=== PATIENT | female | born 1980 | race Caucasian/White ===

== ENCOUNTER 2024-11-28 16:49 | Outpatient (CLI) | payer BC, SELFPAY ==
--- OUTSIDE RECORDS SUMMARY | 2023-08-21 09:40 | XMS_ITS ---
Author Organization [facility] Address [address] [place] [address] Care Team Providers Care Residential Substance Abuse Counselor Name Role Phone LUI LEIGH [phone] REASON FOR VISIT annual/bc refill Encounters Encounter Location Date Provider Diagnosis [facility] [address] [place] [address] 08/21/2023 LUI LEIGH Plan Of Treatment No Information Progress Notes * YOU Mena CDOB:[birth year] (44 yo F)Acc No.[id number]:08/21/2023 Progress Notes Patient: Mena SHARP Provider: ZOEY Begum :1980 A ge:43 Y S ex:Female Date:08/21/2023 Address:[address] [place], [place] [id number] Subjective: * Chief Complaints: * 1 . Annual/bc refill. * Medical History: Objective: * Vitals: Assessment: Plan: * Treatment: * Billing Information: * Visit Code: * Procedure Codes: * Electronic signature of ZOEY DAVIDSON on 11/28/2024 at 03:54 PM CDT Sign off status: Pending * Provider: ZOEY Begum Date: 08/21/2023 Generated for Francois pizarro/Kosta/eTransmitting on: 0 11/28/2024 03:54 PM CDT
--- OUTSIDE RECORDS SUMMARY | 2023-12-04 10:30 | XMS_ITS ---
Author Organization [facility] Address [address] [place] [address] Care Team Providers Care Station Inspector Name Role Phone NATALIYA Eric DO Unavailable [phone] REASON FOR VISIT medication change Encounters Encounter Location Date Provider Diagnosis [facility] [address] [place] [address] 12/04/2023 NATALIYA Eric Plan Of Treatment No Information Progress Notes * YOU Mena CDOB:[birth year] (44 yo F)Acc No.[id number]:12/04/2023 Patient: Khushi SHARPace Srinivasa Provider: Srinivasa NAVARRO DO :1980 A ge:43 Y S ex:Female Date:12/04/2023 Address:[address] [place], [place] [id number] Subjective: * Chief Complaints: * 1 . Medication change. * Medical History: Objective: * Vitals: Assessment: Plan: * Treatment: * Billing Information: * Visit Code: * Procedure Codes: * Electronic signature of MICHAEL Eric DO, DO on 11/28/2024 at 03:54 PM CDT Sign off status: Pending * Provider: Srinivasa NAVARRO DO Date: 12/04/2023 Generated for Francois pizarro/Kosta/eTransmitting on: 11/28/2024 03:54 PM CDT
--- OUTSIDE RECORDS SUMMARY | 2024-11-28 16:54 | XMS_ITS | Patient Health Record ---
Author Organization [facility] Address [address] [place] [address] Care Team Providers Care School Operations Manager Name Role Phone NATALIYA Eric DO Unavailable [phone] Allergies No Known Allergies Reason For Referral No Information Medications Medication SIG (Take, Route, Frequency, Duration) Notes Start Date End Date Status Vienva 0.1-20 MG-MCG TAKE ONE TABLET BY MOUTH ONE TIME DAILY for 84 Active Estrace 0.1 MG/GM 1 gm Vaginal twice w eekly for 30 days 06/07/2022 Not-Taking Adderall XR 15 MG 1 capsule in the mor adrian Orally Once a day Active Immunizations Vaccine Route Administration Date Status Comme nts .Tdap SC Subcutaneous 08/05/2019 Administered Social History Tobacco Use: Social History Observation Description Date Details (start date - stop date) Never Smoker NA - NA Household Question Answer Notes Marital status: Tobacco Use/Smoking Question Answer Notes Tobacco use: nonsmoker Problems Problem Type SNOMED Code ICD Code Onset Dates Problem Status W/U Status Risk Notes Problem 72656822 Urge incontinenc e (N39.41) Active confirmed Encounters Encounter Location Date Provider Diagnosis [facility] [address] [place] [address] 12/03/2023 NATALIYA Eric Plan Of Treatment No Information Insurance Providers Payer Name Payer Address Payer Phone Subscriber Number Group Number Insured Name Patient Relationship to Insured Coverage Start Date Coverage End Date [facility] [address] [place] [phone] [id number] Mena Jamison Self - patient is the insured [facility] [address] [place] [phone] [id number] Mena Jamison Self - patient is the insured Medical (General) History Medical History History ICD Code ADD (attention deficit disorder) F98.8 Surgical History Surgery Date(Month/Year) section; 2019-08-05 wisdom teeth; 2019-08-05
--- NOTE | 2024-11-28 17:01 | CT_ITS ---
PROCEDURE INFORMATION: Exam: CT Abdomen And Pelvis Without Contrast Exam date and time: 11/28/2024 5:02 PM Age: 44 years old Clinical indication: Abdominal pain; Localized; Right lower quadrant (rlq); Additional info: Rlq pain , R/O appendicitis TECHNIQUE: Imaging protocol: Computed tomography of the abdomen and pelvis without contrast. Radiation optimization: All CT scans at this facility use at least one of these dose optimization techniques: automated exposure control; mA and/or kV adjustment per patient size (includes targeted exams where dose is matched to clinical indication); or iterative reconstruction. COMPARISON: No relevant prior studies available. FINDINGS: Liver: 11 mm low-attenuation mass within the lateral segment of the left lobe of the liver with Hounsfield unit measurements of less than 20 consistent with a small cyst. Similar 3 mm low-attenuation nodule anterior left lobe of the liver. Third approximate 10 mm cyst lower right lobe of the liver. No follow-up required. Gallbladder and biliary ducts: Contracted or absent gallbladder. No calcified gallstones appreciated. Pancreas: Somewhat limited evaluation of the pancreas due to adjacent unopacified bowel. No obvious abnormality appreciated. Spleen: Normal. No splenomegaly. Adrenal glands: Normal. No mass. Kidneys and ureters: Small retained stone lower pole left kidney. 8 mm low-attenuation mass upper pole medial right kidney with Hounsfield unit measurements of less than 20 most consistent with a small cyst. No follow-up required. Stomach and bowel: Limited evaluation of the individual bowel loops in the mesentery due to the lack of mesenteric and retroperitoneal fat. Appendix: What appears to be a retrocecal appendix in the right lower quadrant measures 9.5 mm and is fluid filled. There is mild wall thickening. There is a small amount of free fluid within the lower pelvis. Intraperitoneal space: Unremarkable. No free air. No significant fluid collection. Vasculature: Unremarkable. No abdominal aortic aneurysm. Lymph nodes: Unremarkable. No enlarged lymph nodes. Urinary bladder: Unremarkable as visualized. Reproductive: There is a tampon within the vaginal canal. Bones/joints: 10 mm bone island right femoral head. Soft tissues: Small fat containing umbilical hernia. IMPRESSION: 1. Distended fluid-filled retrocecal appendix within the right lower quadrant with mild wall thickening and a small amount of free pelvic fluid. The appearance is worrisome for developing appendicitis. Clinical correlation recommended. A CT abdomen and pelvis with intravenous contrast could be performed if clinical signs and symptoms are equivocal. 2. Contracted or absent gallbladder. 3. Small retained left renal stone. 4. Other findings as above. Somewhat limited evaluation of the abdomen and pelvis due to the lack of mesenteric and retroperitoneal fat. COMMENTS: Consistent with the [employer]'s Incidental Findings Committee white paper (J Am Jes Radiol 2018): Any incidental renal lesion less than 1 cm or classified as too small to characterize, or any incidental cystic renal lesion characterized as simple-appearing, is likely benign. No follow-up imaging is recommended for these lesions per consensus recommendations based on imaging criteria. COMMENT: THIS REPORT CONTAINS FINDINGS THAT MAY BE CRITICAL TO PATIENT CARE. The exam findings were verbally communicated by me to Dr. Farfan via telephone conference at 6:31 PM EDT on 11/28/2024. The findings were acknowledged and understood.
== END 2024-11-28 23:59 | disposition home or self-care (01) ==
LOC: RAD 16:53
PROVIDERS: PCP Family Medicine; Visit Provider Family Medicine
DX: N20.0 Calculus of kidney (principal); K63.89 Other specified diseases of intestine; R93.3 Abnormal findings on diagnostic imaging of other parts of digestive tract; R10.31 Right lower quadrant pain; R10.823 Right lower quadrant rebound abdominal tenderness
CPT/HCPCS: 74176